=== PATIENT | female | born 2000 | race Caucasian/White ===

== ENCOUNTER 2021-10-20 20:21 | Emergency (ER) | payer OTHER ==
[~2021-10-20] VITALS: Ht 170.2 cm; Wt 77.1 kg
[2021-10-20 20:35] VITALS: BP 125/87
--- NOTE | 2021-10-20 20:35 | NUR ---
BIBS FOR C/O GROWING BUMP ON HER R EYE LID X 6 MONTHS. PT A/OX4. TOLERATING R/A WELL WITH NO SOB
[2021-10-20] MEDS ORDERED: ERYT3.5O9 RIGHTEYE (20:54)
--- NOTE | 2021-10-20 20:59 | NUR ---
Patient discharged to home in stable condition. RX Written and verbal after care instructions given. Patient verbalizes understanding of instruction. pt ambulatory with a steady gait
== END 2021-10-20 21:12 | disposition home or self-care (01) ==
LOC: ER 20:21
DX: H00.013 Hordeolum externum right eye, unspecified eyelid (principal); J45.909 Unspecified asthma, uncomplicated; Z88.0 Allergy status to penicillin; Z79.899 Other long term (current) drug therapy

== ENCOUNTER 2024-11-23 23:09 | Emergency (ER) | payer MEDICAID, OTHER ==
[~2024-11-23] VITALS: Ht 170.2 cm; Wt 56.7 kg
[~2024-11-23 23:09] MED LIST: ERYT3.5O9 RIGHTEYE
[2024-11-23 23:45] VITALS: BP 126/90; TEMP 97.6; O2SAT 99
[2024-11-24] MEDS ORDERED: dexaMETHasone SOD PHOSPHATE 1 ML ONE (02:14)
[2024-11-24] MEDS: dexaMETHasone SOD PHOSPHATE 4 MG/ML VIAL IM ONE (02:19)
== END 2024-11-24 02:20 | disposition home or self-care (01) ==
LOC: ER 23:15
DX: J02.8 Acute pharyngitis due to other specified organisms (principal); J45.909 Unspecified asthma, uncomplicated; Z88.0 Allergy status to penicillin; B97.89 Other viral agents as the cause of diseases classified elsewhere; R59.1 Generalized enlarged lymph nodes; Z79.899 Other long term (current) drug therapy
CPT/HCPCS: 99283; 96372; 87070; 87880; J1100; 86403-TC

== ENCOUNTER 2025-04-09 23:14 | Emergency (ER) | payer SELFPAY | END 2025-04-10 00:36 | disposition home or self-care (01) | LOC: ER 23:16 | DX: J45.909 Unspecified asthma, uncomplicated (principal); Z53.21 Procedure and treatment not carried out due to patient leaving prior to being seen by health care provider ==